=== PATIENT | male | born 1995 | race Caucasian/White ===

== ENCOUNTER 2024-07-19 05:23 | Emergency (ER) | payer BC, SELFPAY ==
[2024-07-19 05:24] VITALS: BP 127/74; PULSE 91; RESP 21; TEMP 36.8; O2SAT 96; BMI 39.0
--- NOTE | 2024-07-19 05:31 | ED_ITS ---
Discharge Plan Disposition Patient Disposition: Home, Self-Care Activity Restrictions/Add. Instructions Additional Instructions/Restrictions: Please follow-up with your primary care provider. Please return to the emergency department if you develop any new or worsening symptoms or become concerned for your health. Clinical Impressions Clinical Impression: Acute anxiety, Cannabis intoxication Discharge ED Provider: Jerry Strauss General Adult HPI General Chief complaint: Anxiety Stated complaint: chest pain Time Seen by Provider: 07/19/24 05:30 History of Present Illness HPI narrative: 29-year-old male with history of cannabis use, asthma presents for multiple complaints. He reports taking 3-4 5 mg cannabis edibles in the last 12 hours. He reports that he was seen at outside hospital few days ago for an asthma exacerbation. This morning he became anxious and felt like he was having trouble breathing. He reports that he still feels high but feels like this might be something different. Related Data Allergies Allergy/AdvReac Type Severity Reaction Status Date / Time amoxicillin Allergy Unknown Verified 07/19/24 05:39 allergy reaction azithromycin Allergy Unknown Verified 07/19/24 05:39 allergy reaction Penicillins Allergy Unknown Verified 07/19/24 05:39 allergy reaction PFSH PFS Disclaimer: The information contained in this section may have been updated after the patient was seen, as this information can be updated by other users. Social History Smoking Status: Current every day smoker alcohol intake: current current occupational status: other Travel in the last 8 weeks: None ROS Obtained: Yes All systems reviewed & no additional complaints except as documented Physical Exam General General appearance: alert and appears intoxicated Head Head exam: atraumatic and normocephalic Eye Eye exam: Present normal appearance, PERRL and EOMI ENT ENT exam: Present normal oropharynx and normal external ear exam Neck Neck exam: Present normal inspection and full ROM Chest Chest inspection: Present normal inspection and symmetric chest wall rise; Absent tenderness Respiratory Respiratory exam: Present normal lung sounds bilaterally; Absent respiratory distress Cardiovascular Cardiovascular exam: Present regular rate and normal rhythm Abdominal Exam Abdominal exam: Present soft; Absent distention, tenderness or guarding Extremities Exam Extremities exam: Present normal inspection; Absent edema or joint swelling Back Exam Back exam: Present normal inspection; Absent tenderness Neurological Exam Neurological exam: Present alert and oriented X3; Absent motor sensory deficit Psychiatric Psychiatric exam: Present normal affect and normal mood Skin Skin exam: Present warm, dry and normal color Lymphatic Lymphatic Findings: no adenopathy Medical Decision Making Medical Records Medical records reviewed: Yes I reviewed the patient's medical records. Screening: Per USPSTF and CDC recommendations, given the prevalence of disease in our region, it is our hospital?s policy to screen for HIV and viral Hepatitis for all patients aged 18 and over and those with ongoing risk factors. Aki Inquiry Pt receiving controlled substance: No Aki was queried for this patient: No Vital Signs: 07/19/24 05:24 07/19/24 05:50 Temperature 98.2 F Temperature Source Oral Pulse Rate 109 H Pulse Rate [Right] 91 H Respiratory Rate 21 20 Blood Pressure 136/90 Blood Pressure [Right Arm] 127/74 Blood Pressure Mean [Right Arm] 91 02 Sat by Pulse Oximetry 96 99 Oxygen Delivery Method Room Air Room Air Lab Data Lab results reviewed: Yes I reviewed the patient's lab results. Orders (Tests/Meds): ORDERS Category Date Time Status CXR --portable [XR chest portable] Stat Exams 07/19/24 05:31 Taken EKG Request [ECG Request] Stat Y 07/19/24 05:31 Ordered Medical Decision Narrative: 29-year-old male with history of asthma and cannabis use presents for anxiety and shortness of breath after taking 20 mg of cannabis edibles over the last 12 hours. Denies any other drug or alcohol use, reports these are the same edibles he has taken before. History was obtained via interactive discussion with patient, patient's friend. On arrival, patient is afebrile hemodynamically stable satting properly on room air, alert and oriented but appears intoxicated with somewhat slowed and slurred speech. Full physical exam performed and significant for clear lungs bilaterally Differential includes but is not limited to marijuana intoxication, asthma exacerbation, pneumothorax, arrhythmia. Workup initiated including chest x-ray EKG. On re-evaluation, patient [remains afebrile, HD stable.] Reports some symptomatic improvement. Imaging independently interpreted by me and significant for clear lungs bilaterally. See radiology read for full review of final results. EKG independently interpreted by me and significant for normal sinus rhythm, rat e of 93, isolated Q-wave in lead III, no ST elevation, normal intervals. Documented at 0530. Laboratory workup, medication intervention was considered, but deemed unnecessary due to history and exam. Given patient history, exam and workup, patient's presentation most likely represents acute anxiety and shortness of breath in the setting of marijuana use and asthma. No evidence of acute asthma exacerbation at this time. Patient continues to appear mildly high, but is able to answer questions, ambulate and I believe he is safe for discharge in the company of his friend who will be driving him home. Procedures Risk/Benefits of Procedure(s) Were Explained: Yes Critical Care Critical Care Time Critical Care Time: No
--- NOTE | 2024-07-19 05:31 | XR_ITS ---
PROCEDURE INFORMATION: Exam: XR Chest Exam date and time: 07/19/2024 5:53 AM Age: 29 years old Clinical indication: Pain; Shortness of breath; Left-sided; Additional info: Cp SOA TECHNIQUE: Imaging protocol: Radiologic exam of the chest. Views: 1 view. COMPARISON: No relevant prior studies available. FINDINGS: Lungs: Unremarkable. No consolidation. Pleural spaces: Unremarkable. No pleural effusion. No pneumothorax. Heart/Mediastinum: Unremarkable. No cardiomegaly. Bones/joints: Unremarkable. IMPRESSION: No acute findings.
--- NOTE | 2024-07-19 05:31 | ECG_ITS ---
APPROVED REPORT Exam: Resting ECG HR:97 bpm ECG Measurements Heart Rate 97 AXES MA 145 P 59 QRSd 99 QRS 34 QT 340 T 26 QTc 394 Conclusion SINUS RHYTHM INFERIOR MYOCARDIAL INFARCTION , PROBABLY OLD [40+ ms Q WAVE AND/OR ST/T ABNORMALITY IN II/aVF] ABNORMAL ECG UNCONFIRMED REPORT Electronically signed by : ANDREW JORDAN, 07/20/2024 23:05:02
[2024-07-19 05:50] VITALS: BP 136/90; PULSE 109; RESP 20; O2SAT 99
[2024-07-19 06:24] VITALS: BP 158/77; PULSE 92; RESP 20; TEMP 36.6; O2SAT 99
== END 2024-07-19 06:42 | disposition home or self-care (01) ==
LOC: ER 06:39
PROVIDERS: Emergency Provider Emergency Medicine
DX: F12.929 Cannabis use, unspecified with intoxication, unspecified (principal); R07.9 Chest pain, unspecified; R06.02 Shortness of breath; F41.9 Anxiety disorder, unspecified
CPT/HCPCS: 71045; 93005; 99283